=== PATIENT | female | born 1970 | race Two or more races ===

== ENCOUNTER 2021-11-24 11:55 | Emergency (ER) | payer MEDICAID, OTHER ==
[~2021-11-24] VITALS: Ht 154.9 cm; Wt 106.6 kg
[2021-11-24 12:20] VITALS: BP 107/73
[2021-11-24 14:44] LABS: Urine Bacteria NONE SEEN /hpf (None Seen); Urine Blood 3+ /uL (Negative); Urine Budding Yeast MODERATE /hpf (None Seen); Urine Mucus FEW (None Seen); Urine WBC 713 /hpf (0 - 5); Urine WBC Clumps PRESENT /hpf (None Seen)
[2021-11-24 15:15] LABS: Basophils # (auto) 0.2 10 ^3/uL (0-0.2); Basophils % (auto) 1.8 % (0.0-2.0); Eosinophils # (auto) 0.3 10 ^3/uL (0-0.8); Eosinophils % (auto) 3.7 % (0.0-7.0); Hematocrit 27.7 % (36.0-46.0); Hemoglobin 9.6 g/dL (12.2-16.2); Lymphocytes # (auto) 2.2 10 ^3/uL (0.4-5.4); Lymphocytes % (auto) 25.9 % (10.0-50.0); Mean Corpuscular Hemoglobin 31.1 pg (28.0-32.0); Mean Corpuscular Hgb Conc. 34.5 g/dL (32.0-36.0); Mean Corpuscular Volume 90.1 fL (80.0-100.0); Monocytes # (auto) 0.4 10 ^3/uL (0-1.3); Monocytes % (auto) 4.7 % (0.0-12.0); Neutrophils # (auto) 5.4 10 ^3/uL (1.6-8.6); Neutrophils % (auto) 63.9 % (37.0-80.0); Nucleated Red Blood Cells % 0.1 %; Red Blood Cells 3.08 10^6/uL (4.0-5.20); Red Cell Distribution Width 14.8 % (11.8-14.3); White Blood Cell 8.5 10^3/uL (4.4-10.8)
[2021-11-24 15:36] LABS: Albumin 3.6 g/dL (3.4-5.0); BUN/Creatinine Ratio 19.2; Calcium 8.2 mg/dL (8.5-10.1); Potassium 4.3 mmol/L (3.5-5.1)
[2021-11-24 15:39] LABS: Bilirubin, Total 0.9 mg/dL (0.2-1.0)
[2021-11-24] MEDS ORDERED: SODIUM CHLORIDE 0.9% 1,000 ML IV ONE (15:45)
[2021-11-24] MEDS ORDERED: ONDANSETRON ODT 4 MG TAB PO ONE (15:45)
[2021-11-24] MEDS ORDERED: FLUCONAZOLE 100 MG TAB PO ONE (15:45)
[2021-11-24 15:46] LABS: INR 1.26 (0.9-1.15); Partial Thromboplastin Time 59.5 sec (23.6-33.0)
== END 2021-11-24 19:41 | disposition left against medical advice (07) ==
LOC: ER 11:55
DX: M79.662 Pain in left lower leg (principal); N93.8 Other specified abnormal uterine and vaginal bleeding; D64.9 Anemia, unspecified
CPT/HCPCS: 36415; 73700; 80053; 81001; 83605; 84484; 84702; 85025; 85610; 85730; 93005; 93970